=== PATIENT | female | born 1990 | race Caucasian/White ===

== ENCOUNTER 2020-10-11 08:46 | Emergency (ER) | payer MEDICARE, MEDICAID, SELFPAY ==
[2020-10-11 08:55] VITALS: BP 106/60; BP 118/72; PULSE 70; PULSE 79; RESP 16; TEMP 36.8; O2SAT 100; O2SAT 97; BMI 21.0
--- NOTE | 2020-10-11 09:18 | PC.NURSE ---
MEDICAL RECORDS WERE OBTAINED BY THE AND THEY STATE PT LEFT AMA, SHE WAS BEING TREATED FOR FEVER AND PNEUMONIA. PT WAS TRANSFERED [place] [facility] SHE HAS A HISTORY OF POLYSUBSTANCE ABUSE. SHE WAS ADMITTED ON 10/09
--- NOTE | 2020-10-11 09:30 | ED_ITS ---
HPI - General Adult General Source: patient and EMS Mode of arrival: ambulatory History of Present Illness HPI narrative: Patient is a 30-year-old female who was found by EMS walking on room 91 without shoes. The brought her to this emergency department for weather exposure. Patient denies cough, congestion, fever, nausea, vomiting, diarrhea. Pt states she is just trying to get home to [place]. She states she was at [facility] but she is not sure why she was there but she does know she was a patient. She just wants to get home and offers no other information. She does deny drugs or alcohol use. Review of Systems Review of Systems: Yes all other systems are reviewed and are negative [facility] Social History Social History Advance Directives: No Advance Directives Information Provided: No Physical Exam Vital Signs: Vital Signs: Last Vital Signs Temp 98.2 F 10/11/20 08:55 Pulse 79 10/11/20 08:55 Resp 16 10/11/20 08:55 BP 118/72 10/11/20 08:55 Pulse Ox 97 10/11/20 08:55 Body Mass Index 21.0 Const: General: cooperative, comfortable, poor hygiene and tired appearing Orientation/consciousness: patient oriented x3 Limitations: no limitations HENMT: Head: Yes normal to inspection Eyes: General: appearance normal, both eyes and all related structures Neck: Neck: Yes normal visual inspection and Yes full ROM Resp: Effort & Inspection: normal respiratory effort and able to speak in complete sentences Auscultation: clear to auscultation bilaterally Cardio: Rate: regular rate Rhythm: regular rhythm Heart sounds: normal S1 and S2 GI: Inspection: Yes normal to inspection Palpation (GI): Soft to palpation and nontender Neuro: General: patient oriented x3 Psych: Appearance: disheveled Speech and movement: Slurred speech present Affect: Indifferent affect present Thought process: Normal thought process present Insight: Fair insight present (Psych) Judgement: Fair judgement present (Psych) Course Course Course Narrative: Patient is a 30-year-old female who was picked up by EMS while [place] [address] after leaving [facility] for unknown reason of admission. She offers no information, has no complaints but is clearly disheveled and very drowsy. Need to obtain [facility] records. After my exam, patient has started getting dressed in said she needs to get home a week. Tried to retirement plan counselor patient to stay, explained risks and benefits, explained we needed to get her records from [facility] to see why she was there and figure out why she is so lethargic and drowsy. She adamantly refused several times. RN was able to give pt shoes and I gave her a sandwich and drink. Patient leaving AMA, form completed. Discharge Plan Discharge Patient Disposition: Left Against Medical Advice Stand Alone Forms: Against Medical Advice Discharge Date/Time: 10/11/20 09:41
--- NOTE | 2020-10-11 09:39 | PC.NURSE ---
PROVIDER AT BEDSIDE PT HAS DECLINED CARE AND IS REQUESTING TO LEAVE AMA. SHE WAS PROVIDED SHOES AND A SHIRT. SHE ATE A SANDWICH AND JUICE.
--- NOTE | 2020-10-11 09:41 | PC.NURSE ---
PT NOT IN ROOM WHEN RN RETURNED WITH AMA PAPERWORK
== END 2020-10-11 09:41 | disposition left against medical advice (07) ==
PROVIDERS: Emergency Provider Emergency Medicine
DX: Z04.89 Encounter for examination and observation for other specified reasons (principal)
CPT/HCPCS: 99282

== ENCOUNTER 2024-03-06 14:00 | Outpatient (AMB) | payer MEDICARE, SELFPAY ==
--- NOTE | 2024-03-06 14:17 | A.SPINEOV_ITS ---
Intake Visit Reasons: Lumbar radiculopathy & foot drop Intake Note: Ms. Carrasco is here today c/o Low back pain and Foot drop. Sharepoint Engineer Required: No Allergies No Known Allergies Allergy (Verified 03/06/24 14:27) Assessment & Plan Assessment & Plan (1) Foot drop, right: Code(s): M21.371 - Foot drop, right foot Category: Medical Plan Dear Dr. Solitario, Thank you for referring Gillian to our office today. She is a pleasant 33-year-old female who comes in today with a chief complaint of a right-sided drop foot. She reports a pertinent surgical history at T6/7 open laminectomy to remove a spinal epidural abscess in 2020. This was completed at [facility]. Since then she has had intermittent drop foot. She states it typically lasts 2-3 days then resolves. She is concerned because this when has been ongoing for the past 2 months. She has not tried any conservative measures to help resolve this issue. She does state that she has quite a bit of back pain, but reports this is her baseline and is not associated with her newer onset drop foot. He denies any shooting pain/radiculopathy. She reports no differences in her weakness with positional changes. She is unable to identify any inciting incident prior to this onset of drop foot. PMH: T6/7 open laminectomy to remove spinal epidural abscess[place] [facility] [place] Anxiety, PTSD, cyclical vomiting, asthma, arthritis, myofascial pain disorder. History of many MRSA infections. Social hx: Patient smokes 1/2-1 pack of cigarettes per day, currently on methadone maintenance for opiate use disorder. Medications: Trazodone, famotidine, Depakote, buspirone, gabapentin, Zofran, cl onidine, methadone (160mg AM 60mg PM). Allergies: NKDA. Physical exam: The patient has 0/5 completely diminished strength with right- sided dorsiflexion. She has what I would call 4/5 strength with right-sided plantar flexion. The patient has 5/5 strength elsewhere. She has no significant sensational deficits. Her reflexes are 2+ intact diffusely. She is able to ambulate without any assistive devices however does so with obvious difficulty favoring her left side. (-) Hancock's, (-) clonus, (-) bilateral straight leg raise, (-) bilateral Babinski. Imaging review: MRI of the lumbar spine completed at [facility] shows no acute impingement or stenosis that I can see. Impression: Gillian is a pleasant 33-year-old female who comes in today with a chief complaint of right-sided drop foot that has been intermittent since her surgery back in 2020 to remove his spinal epidural abscess. She states that this particular onset of drop foot has lasted almost 2 months, where other onset of drop foot have lasted 2-3 days. She is very concerned that it may be permanent. We discussed that she may have longstanding nerve damage in the thoracic spine as a result of the previous infection she had. She may also be experiencing peroneal nerve palsy. For the time being I ordered her an ankle- foot orthotic. I asked her to make a follow-up appointment for 2 months from now to be re-evaluated. If her footdrop has not subsided I will consider ordering her a thoracic MRI. I suspect that it may simply resolve with the tincture of time. Thank you for allowing us to care for your patient. The total time spent with this visit with this patient was 45 minutes reviewing history, physical exam, MRI imaging review, and implementation of treatment plan or further diagnostic testing Lele Garcia MD,PhD [facility] Coding Level of Care Code New Pt Level 4 (24382) Diagnoses Foot drop, right M21.371
== END 2024-03-06 14:55 | disposition home or self-care (01) ==
PROVIDERS: PCP Family Medicine; Referring Provider Family Medicine; Visit Provider Physician Assistant
DX: M21.371 Foot drop, right foot (principal)
CPT/HCPCS: 99204

== ENCOUNTER → 2024-03-06 14:00 | Outpatient (BNVA) | payer MEDICARE, SELFPAY | PROVIDERS: PCP Family Medicine; Visit Provider Physician Assistant | DX: M21.371 Foot drop, right foot (principal) | CPT/HCPCS: 99202 ==

== ENCOUNTER 2024-05-14 14:14 | Outpatient (AMB) | payer MEDICARE, SELFPAY ==
--- NOTE | 2024-05-14 14:24 | HO.SPINEOV ---
Intake Visit Reasons: 2month f/u Intake Note: Ms. Carrasco is here today for a 2 month F/u. Content Development Specialist Required: No Allergies No Known Allergies Allergy (Verified 03/06/24 14:27) Assessment & Plan Assessment & Plan (1) Foot drop, right: Code(s): M21.371 - Foot drop, right foot Category: Medical Orders: Orders NE electromyogram (EMG) Today M21.371 - Foot drop, right foot Coding Diagnoses Foot drop, right M21.371
--- NOTE | 2024-05-15 10:50 | A.SPINEOV_ITS ---
Intake Visit Reasons: 2month f/u Allergies No Known Allergies Allergy (Verified 03/06/24 14:27) Assessment & Plan Assessment & Plan (1) Foot drop, right: Code(s): M21.371 - Foot drop, right foot Category: Medical Plan: HPI: Gillian comes in today for a subsequent follow up visit to discuss her continued R sided foot drop. She has obtained her AFO brace and has been able to ambulate much better and complete basic animal eviscerator and activites without any major issues. She remains justifiably concerned that she continues to have no dorsiflexion in her R lower extremity. She has no dexterity issues reported, no trouble with fine motor movement, no balance issues aside from the expected balance disturbance from her foot drop as she ambulates. No radicular pain, and only minimal back pain. Medications: Remain the same without changes reported. Exam: On examination the patient continues to have no dorsiflexion strength in the absence of her brace. She is able to ambulate well but notably favors her left side when walking. Her mid-thoracic incision site from the previous surgery is about 5-6cm long, well healed, and has a notable induration likely from the posterior elements being removed for the SEA resection. No myelopathic reflexes as noted previously. Impression / Plan: Initially we considered the possibility of ordering a repeat thoracic MRI to evaluate any possible issues post-operatively, as she had a SEA removed at [facility] prompting this issue. However after discussion with the attending neurosurgeon Dr. Garcia, it was decided to order the patient an EMG of her lower extremities to evaluate for a possible peroneal nerve injury on the right, in the absence of signs / sxs of myelopathy. I will order this for the patient and call her when we are able to obtain the results. Lele Garcia MD,PhD [facility] Orders: Orders NE electromyogram (EMG) Today M21.371 - Foot drop, right foot Coding Level of Care Code Est Pt Level 3 (86576) Diagnoses Foot drop, right M21.371
== END 2024-05-14 15:13 | disposition home or self-care (01) ==
PROVIDERS: PCP Family Medicine; Visit Provider Physician Assistant
DX: M21.371 Foot drop, right foot (principal)
CPT/HCPCS: 99213

== ENCOUNTER → 2024-05-14 14:14 | Outpatient (BNVA) | payer MEDICARE, SELFPAY | PROVIDERS: PCP Family Medicine; Visit Provider Physician Assistant | DX: M21.371 Foot drop, right foot (principal) | CPT/HCPCS: 99212 ==

== ENCOUNTER 2024-06-20 09:31 | Outpatient (REF) | payer MEDICARE, SELFPAY ==
--- NOTE | 2024-06-20 09:34 | EMG_ITS ---
Chief complaint: Right footdrop at least 1 year, chronic back pain, history of MRSA infections, history of epidural abscess status post T6/7 laminotomy Reason for referral: Evaluate for peroneal neuropathy Referred by: Lele ZIMMER Procedure done: lower extremity NCS/EMG Precautions and/or limitations: None The limb temperature was monitored continuously and remained between 32-36 degrees C during the performance of the NCS. Nerve Conduction Studies Anti Sensory Summary Table ?Stim Site NR Onset (ms) Norm Onset (ms) Peak (ms) Norm Peak (ms) O-P Amp (?V) Norm O-P Amp Site1 Site2 Delta-0 (ms) Dist (cm) Eh (m/s) Norm He (m/s) Left Sural Anti Sensory (Lat Mall) Calf ? 3.3 4.0 <4.0 9.5 >5.0 Calf Lat Mall 3.3 14.0 42 Right Sural Anti Sensory (Lat Mall) Calf NR <4.0 >5.0 Calf Lat Mall 14.0 Motor Summary Table ?Stim Site NR Onset (ms) Norm Onset (ms) O-P Amp (mV) Norm O-P Amp iAmp (mV) Amp (1st) (%) Site1 Site2 Delta-0 (ms) Dist (cm) Eh (m/s) Norm Eh (m/s) Left Peroneal Motor (Ext Dig Brev) Ankle ? 3.7 <4.0 4.3 >2.5 6.3 100.0 Ankle Ext Dig Brev 3.7 0.0 B Fib ? 10.8 4.0 5.5 93.0 B Fib Ankle 7.1 32.0 45 >40 Poplt ? 11.6 3.9 5.5 90.7 Poplt B Fib 0.8 6.0 75 >40 Right Peroneal Motor (Ext Dig Brev) Ankle NR <4.0 >2.5 Ankle Ext Dig Brev 0.0 B Fib NR B Fib Ankle 33.0 >40 Poplt NR Poplt B Fib 6.0 >40 Left Tibial Motor (Abd Frank Brev) Ankle ? 2.8 <5 2.5 >2.5 3.5 100.0 Ankle Abd Frank Brev 2.8 0.0 Knee ? 12.1 1.8 2.1 72.0 Knee Ankle 9.3 39.0 42 >40 Right Tibial Motor (Abd Frank Brev) Ankle ? 5.5 <5 0.8 >2.5 0.7 100.0 Ankle Abd Frank Brev 5.5 0.0 Knee ? 17.0 0.4 0.4 50.0 Knee Ankle 11.5 37.0 32 >40 EMG ?Side Muscle Nerve Root Ins Act Fibs Psw Amp Dur Poly Recrt Int Pat Comment Right AbdHallucis MedPlantar S1-2 Nml Nml Nml Nml Nml 0 Nml Complete Right AntTibialis Dp Br Peron L4-5 Incr 1+ 1+ could not activate Right PostTibialis Tibial L5, S1 Incr 1+ 1+ could not activate Right MedGastroc Tibial S1-2 Incr 1+ 1+ Nml Nml 0 Nml Complete Right VastusMed Femoral L2-4 Nml Nml Nml Nml Nml 0 Nml Complete Right BicepsFemS Sciatic L5-S1 Incr 1+ 1+ Nml Nml 0 Nml Complete Paraspinal EMG ?Side Muscle Nerve Root Ins Act Fibs Psw Comment Right Lumbar Upper Rami Nml Nml Nml Right Lumbar Mid Rami Nml Nml Nml Right Lumbar Lower Rami Incr 1+ 1+ FINDINGS: Right peroneal nerve showed absent response. Right tibial nerve showed very small amplitudes/almost absent response. Right sural nerve showed absent response. All nerves tested on left lower extremity for comparison were within normal. Concentric needle EMG was performed in selected muscles of the right lower extremity and lumbar paraspinals. Study revealed signs of electric abnormalities as shown in the table above. Right tibialis anterior, posterior tibialis, medial gastrocnemius, short head of biceps femoris showed increased insertional activity, PSWs and fibrillations. Right lower lumbar paraspinals showed increased insertional activity, PSWs and fibrillations. IMPRESSION: 1. This is an abnormal study. 2. There is electrodiagnostic evidence for right L5-S1 radiculopathy versus right sciatic neuropathy. CLINICAL COMMENT: Denervation seen on L5-S1 innervated muscles including lumbar paraspinals, suggestive of right L5-S1 radiculopathy. However can not completely rule out a sciatic neuropathy given absent sural response on the right side. Further evaluation such as lumbar imaging may be needed. Thank you for your kind referral. Sarahi Holcomb MD, KUSUM Board Certified, [place] Board of [employer] and Rehabilitation (ABPMR) Board Certified, [place] Board of Electrodiagnostic Medicine (ABEM) [place] [id number] [facility]
== END 2024-06-20 09:32 | disposition home or self-care (01) ==
LOC: HO.NEURO 09:31
PROVIDERS: PCP Family Medicine; Visit Provider Physician Assistant
DX: M21.371 Foot drop, right foot (principal)
CPT/HCPCS: 95886; 95909

== ENCOUNTER → 2024-06-20 09:34 | Outpatient (BNV) | payer MEDICARE, SELFPAY | PROVIDERS: PCP Family Medicine; Visit Provider Physical Medicine & Rehabilitation | DX: M54.16 Radiculopathy, lumbar region (principal); M54.31 Sciatica, right side | CPT/HCPCS: 95886; 95909 ==

== ENCOUNTER 2025-05-01 11:08 | Outpatient (AMB) | payer MEDICARE, SELFPAY ==
--- NOTE | 2025-05-01 11:10 | A.OFFVIS_ITS ---
Vital Signs 05/01/25 11:13 Height 5 ft 6 in Weight 221 lb 6 oz BMI 35.7 BP 102/78 Blood Pressure Location Rt brachial Position Sitting Pulse 70 Pulse Source Pulse Oximeter Pulse Oximetry (%) 96 Oxygen Delivery Method Room Air Intake Visit Reasons: 07/04 LVM+Let INP- Foot Drop Right foot Intake Note: Right foot drop Story Writer Required: No Accompanied by: Self / Same As Patient Allergies No Known Allergies Allergy (Verified 05/01/25 11:10) HPI Comments Details: 34y/o female comes for right foot drop that started 1 year ago . she woke up one morning and her right foot was weak and numb. she had X ray of her foot, spine . She reports a pertinent surgical history at T6/7 open laminectomy to remove a spinal epidural abscess in 2020. This was completed at [facility]. Since then she has had intermittent drop foot. She states it typically lasts 2-3 days then resolves. She also feels her foot is cold and has cramps.she uses AFO which is helping her walking.she reports atrophy of her right leg and her toes are curled and is painful when she walks EMG 05/2024 This is an abnormal study. 2. There is electrodiagnostic evidence for right L5-S1 radiculopathy versus right sciatic neuropathy. she is not sure if she had MRI of her back [facility] Medical History (Updated 05/01/25 @ 12:00 by Leeanne Chaudhry MD) Lipoma of both upper extremities Surgical History (Updated 05/01/25 @ 11:21 by Domingo Hogan MA) History of cervical spinal surgery Social History (Updated 05/01/25 @ 11:22 by Domingo Hogan MA) Alcohol intake: former Patient Tobacco Use Status: Former Tobacco user Physical Exam Vital Signs: Last Vital Signs Pulse 70 05/01/25 11:13 BP 102/78 05/01/25 11:13 Pulse Ox 96 05/01/25 11:13 Oxygen Delivery Method Room Air 05/01/25 11:13 BMI result Body Mass Index 35.7 Const General: cooperative, healthy appearing, comfortable and no acute distress Nutritional Appearance: overweight Orientation/consciousness: patient oriented x3 Eyes Pupils: Equal, round and reactive pupils present Neuro Other: Right calf atrophy - skin change sin right leg - redness, lipoma near the medial malleolus Power- weakness of dorsiflexion foot 3/5 toes 0/5 she is able to walk General: patient oriented x3 and tone normal Cranial nerves: Yes Facial sensation intact/muscles of mastication intact, Yes Equal, round and reactive pupils present, Yes Bilaterally intact EOM present, Yes Nystagmus not present, Yes Normal facial strength present, Yes Midline tongue present and Yes Ability to bilaterally elevate shoulders present Cognition (Neuro): normal cognition Gait exam (Neuro): Other gait observations present Motor exam (neuro): Normal motor muscle tone present throughout Deep tendon reflexes (DTR's): Right triceps reflex intensity grade: 3+, Left triceps reflex intensity grade: 3+, Rt Biceps (C5, C6): 3+, Left biceps reflex intensity grade: 3+, Right brachioradialis reflex intensity grade: 3+, Left brachioradialis reflex intensity grade: 3+, Right patellar reflex intensity grade: 2+, Left patellar reflex intensity grade: 2+, Right ankle reflex intensity grade: 0 and Left ankle reflex intensity grade: 0 Coordination: [id number] test normal Assessment & Plan Assessment & Plan (1) Foot drop, right: Comment: ? L 5 S1 radiculopathy ? Painless complex regional pain syndrome with weakness atrophy Code(s): M21.371 - Foot drop, right foot Category: Medical Plan A very atypical foot drop - with skin changes atrophy, intermittent pain ? CRPS I will evaluate her with MRI brain Repeat EMG PT ? Nerve stimulation Consider ref to CRPS center at [facility] Consider cognitive behaviorla therapy surgery ref for right foot lipoma Reports from [facility] - MRI spine Orders: Orders PT Evaluation and Treatment Today M21.371 - Foot drop, right foot MR head/brain wo con Today M21.371 - Foot drop, right foot Referrals General Surgery Referral D17.21 - Benign lipomatous neoplasm of skin and subcutaneous tissue of right arm, D17.22 - Benign lipomatous neoplasm of skin and subcutaneous tissue of left arm Coding Level of Care Code New Pt Level 4 (35302) Complex EM visit Add On G2211 Diagnoses Foot drop, right M21.371
[2025-05-01 11:13] VITALS: BP 102/78; PULSE 70; O2SAT 96; BMI 35.7
== END 2025-05-01 11:56 | disposition home or self-care (01) ==
LOC: HO.HSMS 11:08
PROVIDERS: PCP Family Medicine; Visit Provider Psychiatry & Neurology Neurology
DX: M21.371 Foot drop, right foot (principal)
CPT/HCPCS: 99204; G2211

== ENCOUNTER → 2025-05-01 11:08 | Outpatient (BNVA) | payer OTHER, SELFPAY | PROVIDERS: PCP Family Medicine; Visit Provider Psychiatry & Neurology Neurology | DX: M21.371 Foot drop, right foot (principal) | CPT/HCPCS: 99202 ==

== ENCOUNTER → 2025-06-18 09:48 | Outpatient (BNV) | payer OTHER, SELFPAY | PROVIDERS: PCP Family Medicine; Visit Provider Radiology Diagnostic Radiology | DX: M21.371 Foot drop, right foot (principal) | CPT/HCPCS: 70551 ==

== ENCOUNTER 2025-06-18 10:04 | Outpatient (REF) | payer OTHER, SELFPAY ==
--- NOTE | ~2025-06-18 | MR_ITS ---
CLINICAL HISTORY: M21.371 - Foot drop, right foot Exam: Nonenhanced MRI brain. Comparison: None. Findings: There is no cerebral edema or mass effect. White matter signal intensities are maintained. Diffusion weighted imaging reveals no restricted diffusion or MR evidence of acute ischemia. Susceptibility weighted imaging reveals no susceptibility artifact or evidence of intracranial hemorrhage. No sellar or parasellar lesions. Ventricular size and configuration are within normal limits. Cerebral cisterns are preserved. No significant signal abnormality seen within the paranasal sinuses or mastoid air cells. Preserved flow signal voids are present within visualized intracranial vasculature. Impression: 1. No acute intracranial abnormalities. This document has been electronically signed by: Enmanuel Loza MD on 06/18/2025 17:13:39
--- OUTSIDE RECORDS SUMMARY | 2025-06-18 12:10 | XMS_ITS | Clinical Summary ---
Author Organization [facility] Address [address] [place] [address] Phone Care Team Providers Care Wearing Apparel Assembler Name Role Phone Ela Cavazos MD Unavailable Lester Solitario DO Primary Care Provider [phone] Allergies No known active allergies Medications baclofen (LIORESAL) 20 MG tablet 1 tablet with food or milk Orally PRN Active gabapentin (NEURONTIN) 100 MG capsule Orally Active Medication-Free Text TraMADol HCl 50 MG Tablet Soluble, Sig: Orally Active albuterol 90 mcg/actuation inhaler 5 Active ARIPiprazole (ABILIFY) 15 MG tablet 5 Active busPIRone (BUSPAR) 10 MG tablet 5 Active cloNIDine HCL (CATAPRES) 0.1 MG tablet 5 Active divalproex (DEPAKOTE) [address] tablet Active famotidine (PEPCID) 20 MG tablet Active LORazepam (ATIVAN) 0.5 MG tablet Active meloxicam (MOBIC) 15 MG tablet Active ondansetron (ZOFRAN-ODT) 4 MG disintegrating tablet 5 Active sertraline (ZOLOFT) 100 MG tablet Active traZODone (DESYREL) 150 MG tablet Active Encounters Date Type Department Care Team Description 04/03/2025 Ancillary Orders [facility],Outside Imaging [address] [place] [address] Unknown, MD Surya 03/29/2025 3:45 PM EDT Office Visit [facility] [address] [place] [address] Carlos Hancock MD Ankle weakness (Primary Dx); Foot mass, right 03/29/2025 - 03/29/2025 11:59 PM EDT Hospital Encounter [facility],Outside Imaging [address] [place] [address] Unknown, Surya, Discharge Disposition: Home or Self Care 03/20/2025 Orders Only [facility] Medicine [address] [place] [address] Sukhdeep Randle MA Right foot pain (Primary Dx) from Last 3 Months Family History Medical History Relation Comments Hypertension Father 2 CV disease Maternal Grandfather 2 Hypertension Maternal Grandfather 2 Stroke Maternal Grandfather 2 CV disease Maternal Grandmother 2 Cancer Maternal Grandmother 2 Diabetes mellitus Maternal Grandmother 2 Hypertension Maternal Grandmother 2 Stroke Maternal Grandmother 2 Diabetes mellitus Mother 2 Hypertension Mother 2 Hypertension Paternal Grandfather 2 Diabetes mellitus Paternal Grandmother 2 Hypertension Paternal Grandmother 2 Relation Status Comments Father 1 Father 2 Maternal Grandfather 1 Maternal Grandfather 2 Maternal Grandmother 1 Maternal Grandmother 2 Mother 1 Mother 2 Paternal Grandfather 1 Paternal Grandfather 2 Paternal Grandmother 1 Paternal Grandmother 2 Social History Tobacco Use Types Packs/Day Years Used Date Smoking Tobacco: Former Cigarettes Smokeless Tobacco: Never Tobacco Cessation:Counseling Given: Not Answered Alcohol Use Standard Drinks/Week Comments Not Currently 0 (1 standard drink = 0.6 oz pur e alcohol) Education Answer Date Recorded Are you interested in more education? Not on suellen e 11/19/2022 Are you concerned about learning? Not on file 11/19/2022 No 11/19/2022 No 11/19/2022 Digital Access Answer Date Recorded No 12/17/2022 No 12/17/2022 Reliable internet access at home? Not on file 12/17/2022 Device with a working camera? Not on file Comments Unknown Sex and Gender Information Value Date Recorded Sex Assigned at Not on file Legal Sex Female 9:05 PM EDT Gender Identity Not on file Sexual Orientation Not on file Last Filed Vital Signs Vital Sign Reading Time Taken Comments Blood Pressure - - Pulse - - Temperature - - Respiratory Rate - - Oxygen Saturation - - Inhaled Oxygen Concentration - - Weight 95.9 kg (211 lb 6.4 oz) 03/29/2025 3:56 P M EDT Height 165.1 cm (5' 5 ) 03/29/2025 3:56 PM EDT Body Mass Index 35.18 03/29/2025 3:56 PM EDT Plan of Treatment Health Maintenance Due Date Last Done Comments VALPROIC ACID (DEPAKENE) LEVEL 1989 DEPRESSION SCREENING 2001 SMOKING Hx and SMOKELESS TOBACCO SCREENING 2002 HEPATITIS C SCREENING 2007 HIV ONE-TIME SCREENING (18-65 YEARS) 2007 PAP SMEAR 2010 Adult Td,Tdap Booster 05/06/2022 05/06/2012, 002 SCREENING FOR DIABETES 2024 INFLUENZA VACCINE (#1) 2025 , 05/27/2018, 06/04/2017, Additional history exists COVID-19 VACCINE ( season) 2025 01/14/2022, 12/08/2021 HEPATITIS A VACCINES Aged Out No long er eligible based on patient's age to complete this topic HIB VACCINES Aged Out No longer eligi ble based on patient's age to complete this topic MENINGOCOCCAL VACCINES (ACWY) Aged Out No longer eligible based on patient's age to complete this topic MENINGOCOCCAL VACCINES (B) Aged Out N o longer eligible based on patient's age to complete this topic PNEUMOCOCCAL VACCINES (0-49 years) Aged Out No longer eligible based on patient's age to complete this topic Medical Devices Not on file Procedures Procedure Name Priority Date/Time Associated Diagnosis Comments MRI FOOT (RIGHT) Routine 03/29/2025 5:48 PM EDT Foot mass, right XR LOWER EXTREMITY OUTSIDE (NO INTERPRETATION) Routine 03/29/2025 12:00 AM EDT XR FOOT (RIGHT) Routine 03/20/2025 8:57 AM EDT Right foot pain from Last 3 Months Results * XR Lower Extremity Outside (No Interpretation) (03/29/2025 12:00 AM EDT) Narrative SYSTEMGENERATED, DOCUMENTATION - 04/03/2025 8:37 AM EDT This study is for PACS storage only and not for interpretation. us Unknown Unknown MD MARISCAL OUTSIDE IMAGING W/OUT INT ERPRETATION Final Result from Last 3 Months Insurance MEDICARE PART A & B [facility] MEDICARE PART A & B [facility] [place] [id number] MEDICARE PART A & B [facility] ONE CARE MEDICARE REPLACEMENT MEDICARE PART A & B [facility] CARE MEDICARE REPLACEMENT MEDICARE PART A & B [facility] ONE CARE MEDICARE REPLACEMENT MEDICARE PART A & B [facility] ONE CARE MEDICARE REPLACEMENT Care Teams Wearing Apparel Assembler Relationship Specialty Start Date End Date Lester Solitario DO [address] [place] [address] [address] [place] [address] [email or web address] - General Hospitalist 03/19/25 Ela Cavazos MD [address] [place] [address], [address] [place] [address] [email or web address] Historical LMR Provider 05/11/17 Additional Source Comments The information contained in this document represents components of the legal health record. It is not the complete legal health record.[facility]
== END 2025-06-18 10:05 | disposition home or self-care (01) ==
LOC: HO.MRI 10:04
PROVIDERS: PCP Family Medicine; Visit Provider Psychiatry & Neurology Neurology
DX: M21.371 Foot drop, right foot (principal)
CPT/HCPCS: 70551

== ENCOUNTER 2025-07-02 11:03 | Outpatient (AMB) | payer OTHER, SELFPAY ==
--- NOTE | 2025-07-02 11:04 | A.OFFVIS_ITS ---
Vital Signs 3 07/02/25 11:11 Height 5 ft 6 in Weight 219 lb BMI 35.3 Intake Visit Reasons: Right foot lipoma Intake Note: Patient presents for an assessment for right foot lipoma. Pt c/o; Onset over 1 year, right lateral planter area, painful mass, unable to walk, reports increase in size. 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 Accompanied by: Self / Same As Patient Allergies No Known Allergies Allergy (Verified 07/02/25 11:13) Medication List - Last Reconciled 07/02/25 by Fabrice Obrien MD albuterol sulfate 90 mcg/actuation 2 puffs inhalation Q4H PRN aripiprazole 10 mg PO DAILY aripiprazole 15 mg PO DAILY buspirone 20 mg PO TID clonidine HCl 0.1 mg PO BID diclofenac sodium 1% topical divalproex 500 mg PO BID famotidine 20 mg PO BID gabapentin 600 mg PO TID lorazepam 0.5 mg PO BID meloxicam 15 mg PO DAILY ondansetron 4 mg PO BID PRN sertraline 100 mg PO DAILY sertraline 50 mg PO DAILY trazodone 150 mg PO BEDTIME HPI Comments Details: Patient reports that she has an idiopathic foot drop on the right-hand side? they do not know why? and for the past year she has had a progressively enlarging lump on the medial aspect of her right foot. She denies any trauma or instrumentation to the region. She reports that the lump is painful and it can alter or inhibit ambulation. [facility] Medical History Lipoma of both upper extremities Surgical History History of tubal ligation History of cholecystectomy History of cervical spinal surgery Family History Other Family history unknown Social History Alcohol intake: former Patient Tobacco Use Status: Former Tobacco user Review of Systems Const All systems reviewed & are unremarkable except as noted in HPI and below Physical Exam Vital Signs: BMI result Body Mass Index 35.3 Const General: cooperative, healthy appearing and comfortable HEENT Head: Yes normal to inspection, Yes normocephalic and Yes atraumatic Eyes General: appearance normal, both eyes and all related structures Pupils: Equal, round and reactive pupils present EOM: EOMs intact bilaterally Neck Neck: Yes normal visual inspection Chest Chest palpation & inspection: normal inspection of the chest Resp Effort & Inspection: normal respiratory effort and able to speak in complete sentences Cardio Rate: regular rate Rhythm: regular rhythm GI Inspection: Yes normal to inspection Neuro Cranial nerves: Yes Equal, round and reactive pupils present Extrem Ankle/foot/toe images: 2 1. 2cm soft mass on proximal/medial aspect of right foot Assessment & Plan Assessment & Plan (1) Mass of foot: Code(s): R22.40 - Localized swelling, mass and lump, unspecified lower limb Category: Medical Qualifiers: Laterality: right Qualified Code(s): R22.41 - Localized swelling, mass and lump, right lower limb Plan: I told the patient that the assessment and operative management of a foot mass was well outside my customary scope of practice. It could be it is a simple lipoma however I suspect it is a bit more complicated than that. I recommended referral to Podiatry or even foot and ankle at [facility]. She reports that she has been to podiatry and they ?did not want to touch it?. Because of this we will try and refer her out to a foot and ankle service for assessment and management. I explained this to her in detail and she indicated that she understood and also indicated that she was happy with the plan as it was outlined to her. Orders: Referrals 2 Podiatry Referral R22.40 - Localized swelling, mass and lump, unspecified lower limb Coding Level of Care Code New Pt Level 3 (22104) Diagnoses Mass of right foot R22.41 Laterality: right Time Spent (min) 30 Comment Time spent in patient visit, record review and coordination of care
[2025-07-02 11:11] VITALS: BMI 35.3
== END 2025-07-02 11:15 | disposition home or self-care (01) ==
LOC: HO.HGS 11:03
PROVIDERS: PCP Family Medicine; Visit Provider Surgery
DX: R22.41 Localized swelling, mass and lump, right lower limb (principal)
CPT/HCPCS: 99203

== ENCOUNTER → 2025-07-02 11:03 | Outpatient (BNVA) | payer OTHER, SELFPAY | PROVIDERS: PCP Family Medicine; Visit Provider Surgery | DX: R22.41 Localized swelling, mass and lump, right lower limb (principal) | CPT/HCPCS: 99202 ==

== ENCOUNTER 2025-07-16 11:58 | Outpatient (AMB) | payer OTHER, SELFPAY ==
--- NOTE | 2025-07-16 12:11 | A.OFFVIS_ITS ---
Intake Visit Reasons: Mass of right foot Intake Note: mass has been growing for about a year it pain when walking and and using shoes no passed treatment no diabetes Allergies No Known Allergies Allergy (Verified 07/16/25 12:13) HPI HPI Mass of right foot: Details: The patient is a 35 year old female presenting with a mass on her right foot. The patient reports a bump on her foot that appeared one day and progressively grew in size. The mass makes it difficult to wear shoes and walk. She received an ultrasound and a CT scan by another provider who told her it was a lipoma. Foot drop: The patient developed a right lower extremity foot drop approximately a year ago, following emergency back surgery in 2021 for a spinal abscess. The symptoms were initially sporadic but eventually became constant. She has limited muscular function of her toes, which are curled, but has regained some ankle movement with home physical therapy. 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 She has had no further infections since the surgery but has a history of other abscesses on her legs, behind her ears, and under her arms. 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 Onychomycosis of toenail: The patient notes a new discoloration of her right big toenail. She reports previously dropping a heavy object on the toe, causing damage, and the nail has fallen off before. 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 - In addiction recovery [facility] Medical History Lipoma of both upper extremities Surgical History History of tubal ligation History of cholecystectomy History of cervical spinal surgery Family History Other Family history unknown Social History (Reviewed 07/02/25 @ 11:14 by MISHA Rossi Alcohol intake: former Patient Tobacco Use Status: Former Tobacco user Review of Systems Const All systems reviewed & are unremarkable except as noted in HPI and below Physical Exam Extrem Other: *Bilateral Lower Extremity Focused Exam Vascular: AT/DP bi-phasic on doppler, PT bi-phasic on doppler. CFT<3s to digits. TG warm to cool. No pedal edema. Varicosities to right medial ankle. Derm: Palpable, mobile mass right medial calcaneus right foot, no underlying crepitus, Neuro: Negative Tinel sign right ankle MSK: no pain on palpation of the right foot mass. Results Reviewed Results Reviewed: 03/20/2025 US Extremity Non-Vascular Right Limited (#[id number]) Finding: US Extremity Non-Vascular Right Limited Reason: RT MEDIAL HEEL MOBILE MASS; IMPRESSION: 1.1 x 1.0 x 1.0 cm circumscribed solid mass along the medial aspect of the posterior foot. This may represent a lipoma. X-ray Read: 12/28/2024 X-ray right foot 3 views (AP, MO, Lateral) reviewed which shows increased 4th/5th intermetatarsal angle. No mass plantar aspect of calcaneus. I personally reviewed the imaging and my findings are listed above. Assessment & Plan Assessment & Plan (1) Mass of foot: Code(s): R22.40 - Localized swelling, mass and lump, unspecified lower limb Category: Medical Qualifiers: Laterality: right Qualified Code(s): R22.41 - Localized swelling, mass and lump, right lower limb Plan: * Discussed treatment options including conservative management versus surgical excision. * Surgical excision would until linear incision overlying the mass with full excision sent for pathology. Discussed that since the masses on the medial side of her heel, there is concern for increased pressure from shoe wear that could cause a wound dehiscence/infection. Postoperatively, the patient will be placed in a special shoe and may require crutches for 5-7 days to avoid pressure on the incision. * The procedure will be scheduled for August 16. * Prophylactic antibiotics may be prescribed for about 4-5 days post-surgery due to her history of infections. * Postoperative pain will be managed with strong NSAIDs, with tramadol as a potential alternative if needed; opiates are not anticipated to be necessary. * The patient will be counseled on the risks, including recurrence and potential for skin healing problems. (2) Peripheral arterial occlusive disease: Code(s): I77.9 - Disorder of arteries and arterioles, unspecified Category: Medical Plan: * Rx arterial duplex right lower extremity (3) Foot drop, right: Comment: ? L 5 S1 radiculopathy ? Painless complex regional pain syndrome with weakness atrophy Code(s): M21.371 - Foot drop, right foot Category: Medical Plan: * May plan for AFO brace for right lower extremity Orders: Orders US arterial duplex LE RT Today I77.9 - Disorder of arteries and arterioles, unspecified Coding Level of Care Code New Pt Level 4 (75083) Diagnoses Mass of right foot R22.41 Laterality: right Peripheral arterial occlusive disease I77.9 Foot drop, right M21.371 Time Spent (min) 35
--- OUTSIDE RECORDS SUMMARY | 2025-07-16 13:10 | XMS_ITS | Clinical Summary ---
Author Organization [facility] Address [address] [place] [id number] Phone Care Team Providers Care Professional Fighter Name Role Phone Ela Cavazos MD Unavailable Lester Solitario DO Primary Care Provider [phone] Allergies No known active allergies Medications baclofen [...] Active traZODone (DESYREL) 150 MG tablet Active Family History Medical History Relation Comments Hypertension [...] this topic Medical Devices Not on file Insurance MEDICARE PART A & B [facility] MEDICARE REPLACEMENT MEDICARE PART A & B [facility] ONE CARE MEDICARE REPLACEMENT MEDICARE PART A & B [facility] CARE MEDICARE REPLACEMENT MED[facility] CARE MEDICARE REPLACEMENT MEDICARE PART A & B [facility] CARE MEDICARE REPLACEMENT MEDICARE PART A & B [facility] [place] [id number] Care Teams Professional Fighter Relationship Specialty Start Date End Date Lester Solitario, [address] [place] [id number] [email or web address] PCP - General Hospitalist 03/19/25 Ela Cavazos MD [address] [place] [address], [address] [place] [id number] [email or web address] Historical LMR Provider 05/11/17 Additional Source Comments The information contained in this document represents components of the legal health record. It is not the complete legal health record.[facility]
== END 2025-07-16 13:44 | disposition home or self-care (01) ==
LOC: HO.HPODS 11:58
PROVIDERS: PCP Family Medicine; Visit Provider Student in an Organized Health Care Education/Training Program
DX: R22.41 Localized swelling, mass and lump, right lower limb (principal); I77.9 Disorder of arteries and arterioles, unspecified; M21.371 Foot drop, right foot
CPT/HCPCS: 99204

== ENCOUNTER → 2025-07-16 11:58 | Outpatient (BNVA) | payer OTHER, SELFPAY | PROVIDERS: PCP Family Medicine; Visit Provider Student in an Organized Health Care Education/Training Program | DX: Z01.818 Encounter for other preprocedural examination (principal); R22.41 Localized swelling, mass and lump, right lower limb; I77.9 Disorder of arteries and arterioles, unspecified; M21.371 Foot drop, right foot | CPT/HCPCS: 99202 ==